=== PATIENT | female | born 1950 | race Two or more races ===

== ENCOUNTER 2023-04-25 09:54 | Outpatient (CLI) | payer MEDICARE, BC ==
[~2023-04-25] VITALS: Ht 154.9 cm; Wt 77.1 kg
[~2023-04-25 09:54] MED LIST: ALBU8.5H17 IH; ASPI-611 PO; FLUT12AE2 IH; NAPR220C15 PO
[2023-04-25 10:52] LABS: BASOPHILS % (AUTO) 0.4 % (0-1); EOSINOPHILS # (AUTO) 0.2 X10'3 (0-0.9); EOSINOPHILS % (AUTO) 1.3 % (0-6); LYMPHOCYTES # (AUTO) 1.6 X10'3 (1.1-4.8); MEAN CORPUSCULAR HEMOGLOBIN 30.1 PG (27.0-31.0); MEAN CORPUSCULAR HGB CONC 33.4 g/dL (33.0-36.5); MEAN CORPUSCULAR VOLUME 90.3 FL (78-98); MEAN PLATELET VOLUME 9.1 FL (7.4-10.4); MONOCYTES # (AUTO) 0.9 X10'3 (0-0.9); MONOCYTES % (AUTO) 7.1 % (2-12); NEUTROPHILS # (AUTO) 9.6 X10'3 (1.8-7.7); NEUTROPHILS % (AUTO) 78.2 % (42-75); PRE OP HEMOGLOBIN 14.7 g/dL (12.0-16.0); PRE OP PLATELET COUNT 234 X10'3 (140-440); PRE OP WHITE BLOOD COUNT 12.3 10'3 (4.8-10.8); RED BLOOD COUNT 4.88 X10'6 (4.20-5.60); RED CELL DISTRIBUTION WIDTH 13.8 % (11.5-14.5)
[2023-04-25] MEDS ORDERED: METO-395 PO (11:09)
[2023-04-25] MEDS ORDERED: OMEP20CA16 PO (11:09)
[2023-04-25] MEDS ORDERED: DICL-212 PO (11:09)
[2023-04-25] MEDS ORDERED: SIMV-42 PO (11:09)
[2023-04-25] MEDS ORDERED: ALBU18HF2 (11:09)
[2023-04-25] MEDS ORDERED: LEVO75TA PO (11:09)
[2023-04-25] MEDS ORDERED: AMLO10TA13 PO (11:09)
[2023-04-25 11:16] LABS: ALBUMIN 3.8 G/DL (3.4-5.0); ALBUMIN/GLOBULIN RATIO 0.9 (1.1-1.5); ALKALINE PHOSPHATASE 84 IU/L (46-116); BLOOD UREA NITROGEN 16 MG/DL (7-18); BUN/CREATININE RATIO 19.8 (10.0-20.0); CALCIUM 9.7 MG/DL (8.5-10.1); CHLORIDE 100 MMOL/L (99-107); CREATININE 0.81 MG/DL (0.40-0.90); PRE OP ALT 27 U/L (30-65); PRE OP ANION GAP 8 (8-16); PRE OP AST 25 U/L (10-37); PRE OP BILIRUB, TOTAL 0.5 MG/DL (0.0-1.0); PRE OP GLUCOSE 139 MG/DL (70-104); PRE OP POTASSIUM 3.6 MMOL/L (3.4-5.1); PRE OP SODIUM 137 MMOL/L (135-145); TOTAL CARBON DIOXIDE 29.3 MMOL/L (24-32); TOTAL PROTEIN 8.1 G/DL (6.4-8.2); eGFR 70 ML/MIN
[2023-04-28] MEDS ORDERED: ringers solution, lacted 1,000 ML IV SCH (05:00)
[2023-04-28] MEDS ORDERED: cefazolin 2gm/D5W 100mL 100 ML IV ONE (05:30)
[2023-04-28] MEDS ORDERED: famotidine 20mg tablet PO ONE (05:30)
[2023-04-28] MEDS ORDERED: DOCUMENT DATE & TIME OF BETA-BLOCKER PO ONE (05:30)
== END 2023-04-25 23:59 | disposition home or self-care (01) ==
LOC: LAB 09:54 → EDSTATUS 04-28 11:00
PROVIDERS: ATTEND Orthopaedic Surgery Hand Surgery
DX: Z01.812 Encounter for preprocedural laboratory examination (principal); M67.431 Ganglion, right wrist; J44.9 Chronic obstructive pulmonary disease, unspecified; I10 Essential (primary) hypertension; M19.90 Unspecified osteoarthritis, unspecified site; K21.9 Gastro-esophageal reflux disease without esophagitis; Z98.1 Arthrodesis status; Z90.49 Acquired absence of other specified parts of digestive tract; Z90.710 Acquired absence of both cervix and uterus; Z88.2 Allergy status to sulfonamides; Z79.82 Long term (current) use of aspirin; Z79.899 Other long term (current) drug therapy; Z98.890 Other specified postprocedural states; Z87.891 Personal history of nicotine dependence; Z72.89 Other problems related to lifestyle; Z82.49 Family history of ischemic heart disease and other diseases of the circulatory system
CPT/HCPCS: 36415; 80053; 85025; 93005; J0690; J7120